=== PATIENT | male | born 1940 | race Caucasian/White ===

== ENCOUNTER → 2018-02-06 07:48 | Outpatient (REF) | payer MEDICARE, MEDICAID, SELFPAY ==
[2018-02-06 08:09] LABS: Add Manual Diff / Slide Review NO; Basophils Percent Auto 0.4 % (0-2); Eosinophils Percent Auto 11.6 % (2-4); Hematocrit 35.4 % (41-53); Hemoglobin 12.3 g/dL (13.5-17.5); Lymphocytes Percent Auto 28.9 % (25-40); Mean Corpuscular HGB Conc 34.6 % (30-36); Mean Corpuscular Hemoglobin 31.5 PG (26-34); Mean Corpuscular Volume 91.1 fL (80-100); Monocytes Percent Auto 8.9 % (3-14); Neutrophils Absolute Auto 2300 /uL (3000-5900); Neutrophils Percent Auto 50.2 % (50-75); Platelet Count 173 X10^3/uL (150-400); Red Blood Cell Count 3.88 X10^6/uL (4.5-5.9); Red Cell Distribution Width 14.9 % (11.6-14.8); White Blood Cell Count 4.6 X10^3/uL (4.5-11.0)
[2018-02-06 08:18] LABS: Alanine Aminotransferase 61 IU/L (21-72); Albumin 3.5 g/dL (3.5-5.0); Albumin Globulin Ratio 1.2 (1.0-2.8); Alkaline Phosphatase 81 U/L (38-126); Aspartate Aminotransferase 60 IU/L (17-59); BUN Creatinine Ratio 11.3 (6-22); Bilirubin Total 0.5 mg/dL (0.2-1.3); Blood Urea Nitrogen 9 mg/dL (9-20); Calcium 8.8 mg/dL (8.4-10.2); Carbon Dioxide 24 mmol/L (22-32); Chloride 102 mmol/L (98-107); Estimated Glomerular Filt Rate > 60.0 mL/min (>60); Globulin 2.9 g/dL (1.7-4.1); Glucose 85 mg/dL (80-110); HEMOLYSIS < 15 (0-50); Magnesium 1.8 mg/dL (1.6-2.3); Sodium 136 mmol/L (137-145); Total Protein 6.4 g/dL (6.3-8.2)
[2018-02-06 08:54] LABS: Thyroid Stimulating Hormone 1.27 uIU/mL (0.47-4.68)
[2018-02-06 09:06] LABS: Vitamin B12 635 pg/mL (239-931)
== END ==
LOC: LAB 07:48
PROVIDERS: Visit Provider Nurse Practitioner Family
DX: Z51.81 Encounter for therapeutic drug level monitoring (principal)
CPT/HCPCS: 36415; 80053; 82607; 83735; 84443; 85025

== ENCOUNTER 2018-03-25 09:49 | Emergency (ER) | payer MEDICARE, MEDICAID, SELFPAY ==
[2018-03-25] VITALS (8 sets, daily range): BP systolic 133–151; BP diastolic 68–77; PULSE 71–91; RESP 15–24; TEMP 37.4–38.3; O2SAT 96–98; BMI 24.2
--- NOTE | 2018-03-25 10:02 | DI.RAD.S_ITS ---
PROCEDURE: XR CHEST 1V INDICATIONS: fever TECHNIQUE: One view of the chest was acquired. COMPARISON: None. FINDINGS: Surgical changes and devices: None. Lungs and pleura: No pleural effusions or pneumothorax. Evaluation in the lung bases is limited due to lordotic projection. There are possible right basilar opacities. Mediastinum: Mediastinal contours appear normal. Heart size is normal. Bones and chest wall: No suspicious bony lesions. Overlying soft tissues appear unremarkable. IMPRESSION: 1. Limited evaluation of the lung bases secondary to lordotic projection with suspected opacities in the right base. Recommend a PA and lateral study when clinically feasible. Dictated by: Kirit Charles M.D. on 03/25/2018 at 10:31 Approved by: Kirit Charles M.D. on 03/25/2018 at 10:32
[2018-03-25] MEDS: SODIUM CHLORIDE 0.9% 1,000 ML 1000 ML IV ×2 (10:08→12:32)
--- NOTE | 2018-03-25 10:11 | ED_ITS ---
HPI - Fever General Chief Complaint: Fever Stated Complaint: Fever Time Seen by Provider: 03/25/18 09:56 Source: patient Mode of arrival: ambulatory Limitations: no limitations History of Present Illness HPI Narrative: Patient is brought to the emergency department for fever and not feeling well for the last couple of days. He states that he has not had any chest pain or abdominal pain; no shortness of breath. No nausea or vomiting. No dysuria. He does note that he has had back pain in his lower back, which is unusual for him. Patient denies sore throat. He states that he does have a number of sick contacts from his place of residence. No other complaints at this time. Patient is not sure of his T-max. Related Data Previous Rx's Medication Instructions Recorded sulfamethoxazole-trimethoprim 1 tab PO BID #14 tab 03/25/18 [Bactrim DS] Allergies Allergy/AdvReac Type Severity Reaction Status Date / Time No Known Drug Allergies Allergy Verified 03/25/18 10:07 Review of Systems Review of Systems All systems reviewed & are unremarkable except as noted in HPI and below Constitutional Denies chills, Reports fever(s), Denies lethargy, Reports malaise and Denies weakness Eyes Denies change in vision, Denies eye discharge, Denies irritation and Denies loss of vision ENT Ears, Nose, Mouth, and Throat: Denies change in voice, Denies neck pain and Denies sore throat Cardiovascular Denies chest pain, Denies irregular heart rhythm, Denies lightheadedness, Denies palpitations, Denies dyspnea, Denies dyspnea on exertion and Denies orthopnea Respiratory Denies cough, Denies dyspnea, Denies dyspnea on exertion and Denies wheezing Gastrointestinal Gastrointestinal: Denies abdominal pain, Denies change in bowel habits, Denies diarrhea, Denies nausea and Denies vomiting Genitourinary Denies hematuria, Denies flank pain, Denies urinary incontinence and Denies urinary urgency Musculoskeletal Denies neck pain Integumentary/Breasts Denies pruritus, Denies erythema, Denies rash and Denies wounds Neurologic Denies confusion, Denies loss of vision and Denies weakness Psychiatric Denies anxiety, Denies confusion, Denies depression, Denies homicidal ideation and Denies suicidal ideation Endocrine Denies palpitations Hematologic/Lymphatic Denies easy bruising Allergic/Immunologic Denies wheezing [facility] Medical History Hypothyroid (Acute) Depression (Acute) GERD (gastroesophageal reflux disease) (Acute) Surgical History No pertinent past surgical history (Acute) Social History additional social history: custodial resident, no smoking Exam Initial Vital Signs Initial Vital Signs: Vital Signs Temperature 100.9 F H 03/25/18 09:52 Pulse Rate 91 H 03/25/18 09:52 Respiratory Rate 15 03/25/18 09:52 Blood Pressure 133/76 03/25/18 09:52 Pulse Oximetry 96 03/25/18 09:52 Const General: cooperative and well developed Nutritional Appearance: well nourished Orientation: alert, awake, oriented x3 and not confused HENMT Head: normocephalic and atraumatic Ears: external ears normal Nose: external nose normal and No nasal discharge Face and sinus: face symmetric and No dry mucous membranes Mouth: oral mucosae normal and moist mucous membranes Teeth and gingiva: dentition normal Eyes General: appearance normal, both eyes and all related structures Eyelids: eyelids normal Conjunctivae: conjunctivae normal Sclera: sclerae normal Pupils: PERRL EOM: EOM intact bilaterally Neck Neck: normal visual inspection, trachea midline, No lymphadenopathy, No midline deformity and No JVD Lymphatic: No lymphedema Chest Chest: normal inspection of the chest Resp Effort & Inspection: normal respiratory effort, able to speak in complete sentences, no respiratory distress and no use of accessory muscles Auscultation: clear to auscultation bilaterally, no rales, no rhonchi and no wheezes Cardio Rate: regular rate Rhythm: regular rhythm Heart Sounds: no click, no gallops, no murmurs and no rubs Pulses: normal peripheral pulses GI Inspection: non-distended Palpation: soft, no hepatosplenomegaly, No guarding, No pulsatile mass and tender (Moderate, suprapubic) Auscultation: normal bowel sounds Back/Spine/Pelvis Back: CVA tenderness (Mild, bilateral CVA) Cervical Spine: cervical ROM normal and No pain with cervical ROM Thoracic/Lumbar Spine: thoracic and lumbar spine normal to inspection Skin General: no rashes or lesions noted, No jaundice and No petechiae Neuro General: alert, oriented x3, gait normal and no focal motor deficits Speech: speech normal Extrem General: full ROM, no clubbing, cyanosis or edema, no pedal edema and no calf tenderness Psych Appearance: well kempt Mental Status: mental status grossly normal Attitude: cooperative Thought Content: normal and suicidality Judgment: judgment good Course Course Narrative: Patient was given a L 0.9 normal saline, a dose of Tylenol, and worked up with labs, influenza test and urinalysis, as well as chest x-ray. Workup was negative except for the urinalysis, which showed a UTI. Patient was started on antibiotics for this. His lactic acid level was normal, and he remained hemodynamically stable throughout his stay in the emergency department. There is no indication of sepsis or any other serious, life- threatening condition. I did feel patient is stable for discharge back to his assisted living facility. We have discussed the usual indications for return. Orders Ordered: ED Orders 03/25/18 11:50 Urinalysis and Microscopic Stat Urine Culture Stat Discontinued Medications Sodium Chloride (Normal Saline 0.9%) 1,000 mls @ 1,000 mls/hr IV BOLUS ONE Stop: 03/25/18 11:01 Last Infusion: 03/25/18 12:31 Dose: 0 mls/hr Admin: 03/25/18 10:08 Dose: 1,000 mls/hr Sodium Chloride (Normal Saline 0.9%) 1,000 mls @ 1,000 mls/hr IV BOLUS ONE Stop: 03/25/18 13:30 Last Infusion: 03/25/18 13:53 Dose: 0 mls/hr Admin: 03/25/18 12:32 Dose: 1,000 mls/hr Trimethoprim/Sulfamethoxazole (Bactrim Ds) 1 tab PO NOW ONE Stop: 03/25/18 13:13 Last Admin: 03/25/18 13:17 Dose: 1 tab Vital Signs - 8 hr 03/25/18 12:34 03/25/18 13:00 03/25/18 13:30 Temperature Pulse Rate 72 78 71 Respiratory Rate 24 21 Blood Pressure Blood Pressure [Left Arm] 140/74 142/77 H 151/74 H Pulse Oximetry 97 03/25/18 13:53 03/25/18 14:15 Temperature 99.4 F 99.4 F Pulse Rate 73 Respiratory Rate 22 Blood Pressure 151/74 H Blood Pressure [Left Arm] Pulse Oximetry 96 MDM - Fever Medical Records Attestation: I reviewed the patient's medical records. Lab Data Attestation: I reviewed the patient's lab results. Result diagrams: 03/25/18 09:45 03/25/18 09:45 Lab Results 03/25/18 03/25/18 03/25/18 Range/Units 09:45 09:45 09:45 WBC 11.1 H (4.5-11.0) X10^3/uL RBC 4.59 (4.5-5.9) X10^6/uL Hgb 14.3 (13.5-17.5) g/dL Hct 41.9 (41-53) % MCV 91.4 (80-100) fL MCH 31.3 (26-34) PG MCHC 34.2 (30-36) % RDW 14.6 (11.6-14.8) % Plt Count 204 (150-400) X10^3/uL Neut % (Auto) 79.0 H (50-75) % Lymph % (Auto) 11.1 L (25-40) % [place] % (Auto) 8.2 (3-14) % Eos % (Auto) 0.4 L (2-4) % Baso % (Auto) 1.3 (0-2) % Neut # (Auto) 8700 H (3070-8848) /uL Sodium 136 L (137-145) mmol/L Potassium 3.9 (3.4-5.1) mmol/L Chloride 100 (98-107) mmol/L Carbon Dioxide 21 L (22-32) mmol/L BUN 12 (9-20) mg/dL Creatinine 1.00 (0.66-1.25) mg/dL Estimated GFR > 60.0 (>60) mL/min BUN/Creatinine Ratio 12.0 (6-22) Glucose 138 H (80-110) mg/dL Lactate 1.4 (0.7-2.1) mmol/L Calcium 9.7 (8.4-10.2) mg/dL Total Bilirubin 1.3 (0.2-1.3) mg/dL AST 40 (17-59) IU/L ALT 29 (21-72) IU/L Alkaline Phosphatase 90 (38-126) U/L Total Protein 8.1 (6.3-8.2) g/dL Albumin 4.4 (3.5-5.0) g/dL Globulin 3.7 (1.7-4.1) g/dL Albumin/Globulin Ratio 1.2 (1.0-2.8) Urine Color Urine Appearance Urine pH (4.5-8.0) Ur Specific [place] (1.000-1.035) Urine Protein (Negative) Urine Glucose (UA) (Negative) g/dL Urine Ketones (NEGATIVE) Urine Occult Blood (Negative) Urine Nitrate (Negative) Urine Bilirubin (NEGATIVE) Urine Urobilinogen (0.2) E.U./dL Ur Leukocyte Esterase (NEGATIVE) Urine RBC (0-5/HPF) Urine WBC (0-5/HPF) Urine Bacteria (None) Urine Mucus (Negative) Ur Culture Indicated? Influenza A & B (PCR) (Negative) 03/25/18 03/25/18 Range/Units 10:15 11:50 WBC (4.5-11.0) X10^3/uL RBC (4.5-5.9) X10^6/uL Hgb (13.5-17.5) g/dL Hct (41-53) % MCV (80-100) fL MCH (26-34) PG MCHC (30-36) % RDW (11.6-14.8) % Plt Count (150-400) X10^3/uL Neut % (Auto) (50-75) % Lymph % (Auto) (25-40) % [place] % (Auto) (3-14) % Eos % (Auto) (2-4) % Baso % (Auto) (0-2) % Neut # (Auto) (9900-7127) /uL Sodium (137-145) mmol/L Potassium (3.4-5.1) mmol/L Chloride (98-107) mmol/L Carbon Dioxide (22-32) mmol/L BUN (9-20) mg/dL Creatinine (0.66-1.25) mg/dL Estimated GFR (>60) mL/min BUN/Creatinine Ratio (6-22) Glucose (80-110) mg/dL Lactate (0.7-2.1) mmol/L Calcium (8.4-10.2) mg/dL Total Bilirubin (0.2-1.3) mg/dL AST (17-59) IU/L ALT (21-72) IU/L Alkaline Phosphatase (38-126) U/L Total Protein (6.3-8.2) g/dL Albumin (3.5-5.0) g/dL Globulin (1.7-4.1) g/dL Albumin/Globulin Ratio (1.0-2.8) Urine Color Yellow Urine Appearance Clear Urine pH 6.5 (4.5-8.0) Ur Specific [place] 1.015 (1.000-1.035) Urine Protein 1+ H (Negative) Urine Glucose (UA) Negative (Negative) g/dL Urine Ketones Negative (NEGATIVE) Urine Occult Blood 3+ H (Negative) Urine Nitrate Negative (Negative) Urine Bilirubin Negative (NEGATIVE) Urine Urobilinogen 0.2 (0.2) E.U./dL Ur Leukocyte Esterase 1+ H (NEGATIVE) Urine RBC 10-30/hpf H (0-5/HPF) Urine WBC 10-30/hpf H (0-5/HPF) Urine Bacteria Moderate (10-30) H (None) Urine Mucus 1+ H (Negative) Ur Culture Indicated? Specimen cultured Influenza A & B (PCR) Negative (Negative) Urine Dip Bedside Urine Glucose Negative Bedside Urine Bilirubin - Negative Bedside Urine Ketone - Negative Urine Specific [place] 1.015 Bedside Urine Occult Blood +++ Bedside Urine pH 6.0 Bedside Urine Protein + 30 Bedside Urine Urobilinogen - Negative Bedside Urine Nitrite - Negative Bedside Urine Leukocytes + 70 Esterase Imaging Data Chest x-ray: Attestation: I personally reviewed and interpreted this imaging study as follows: My impression: Negative Radiologist's impression: PROCEDURE: XR CHEST 1V INDICATIONS: fever TECHNIQUE: One view of the chest was acquired. COMPARISON: None. FINDINGS: Surgical changes and devices: None. Lungs and pleura: No pleural effusions or pneumothorax. Evaluation in the lung bases is limited due to lordotic projection. There are possible right basilar opacities. Mediastinum: Mediastinal contours appear normal. Heart size is normal. Bones and chest wall: No suspicious bony lesions. Overlying soft tissues appear unremarkable. IMPRESSION: 1. Limited evaluation of the lung bases secondary to lordotic projection with suspected opacities in the right base. Recommend a PA and lateral study when clinically feasible. Dictated by: Kirit Charles M.D. on 03/25/2018 at 10:31 Approved by: Kirit Charles M.D. on 03/25/2018 at 10:32 ECG Data Attestation: I personally reviewed and interpreted this ECG as follows: (See below) Interpretation: Twelve lead EKG performed March 25, 2017 at 10:20 a.m., as follows: Regular ventricular rhythm with a rate of 72 beats per minute LA interval 173 millisecond QRS duration 98 millisecond QTC interval [address] T wave changes No ectopy In summary, normal sinus rhythm; no STEMI; normal EKG as interpreted by ED MD. Discharge Plan Departure Patient Disposition: Home Clinical Impression: Acute UTI Discharge Date/Time: 03/25/18 14:15 Interventions: ED Discharge Assessment Last Done: 03/25/18 14:15 Instructions: DI for Urinary Tract Infection (UTI) Prescriptions: New sulfamethoxazole-trimethoprim [Bactrim DS] 800-160 mg tablet 1 tab PO BID Qty: 14 RF: 0 Referrals: [facility] [Provider Group]
[2018-03-25 10:12] LABS: Add Manual Diff / Slide Review NO; Basophils Percent Auto 1.3 % (0-2); Eosinophils Percent Auto 0.4 % (2-4); Hematocrit 41.9 % (41-53); Hemoglobin 14.3 g/dL (13.5-17.5); Lymphocytes Percent Auto 11.1 % (25-40); Mean Corpuscular HGB Conc 34.2 % (30-36); Mean Corpuscular Hemoglobin 31.3 PG (26-34); Mean Corpuscular Volume 91.4 fL (80-100); Monocytes Percent Auto 8.2 % (3-14); Neutrophils Absolute Auto 8700 /uL (1500-7000); Platelet Count 204 X10^3/uL (150-400); Red Blood Cell Count 4.59 X10^6/uL (4.5-5.9); Red Cell Distribution Width 14.6 % (11.6-14.8); White Blood Cell Count 11.1 X10^3/uL (4.5-11.0)
[2018-03-25 10:22] LABS: Alanine Aminotransferase 29 IU/L (21-72); Albumin 4.4 g/dL (3.5-5.0); Albumin Globulin Ratio 1.2 (1.0-2.8); Alkaline Phosphatase 90 U/L (38-126); Aspartate Aminotransferase 40 IU/L (17-59); Bilirubin Total 1.3 mg/dL (0.2-1.3); Blood Urea Nitrogen 12 mg/dL (9-20); Calcium 9.7 mg/dL (8.4-10.2); Carbon Dioxide 21 mmol/L (22-32); Chloride 100 mmol/L (98-107); Estimated Glomerular Filt Rate > 60.0 mL/min (>60); Globulin 3.7 g/dL (1.7-4.1); Glucose 138 mg/dL (80-110); HEMOLYSIS 18 (0-50); Potassium 3.9 mmol/L (3.4-5.1); Sodium 136 mmol/L (137-145); Total Protein 8.1 g/dL (6.3-8.2)
[2018-03-25 10:23] LABS: Lactate (Lactic Acid) 1.4 mmol/L (0.7-2.1)
[2018-03-25 10:35] LABS: Influenza A and B by PCR Rapid Negative (Negative)
[2018-03-25 12:08] LABS: Appearance Urine UA CLEAR; Bilirubin Urine UA NEGATIVE (NEGATIVE); Color Urine UA YELLOW; Glucose Urine UA NEGATIVE (Negative); Ketones Urine UA NEGATIVE (NEGATIVE); Leukocyte Esterase Urine UA 1+ (NEGATIVE); Nitrite Urine UA NEGATIVE (Negative); Occult Blood Urine UA 3+ (Negative); Protein Urine UA 1+ (Negative); Specific Gravity Urine UA 1.015 (1.000-1.035); Urobilinogen Urine UA 0.2 E.U./dL (0.2); pH Urine UA 6.5 (4.5-8.0)
[2018-03-25 12:21] LABS: Bacteria Urine Moderate (10-30); Culture Indicated Urine Specimen Cultured; Mucus Urine 1+ (Negative); RBC Urine 10-30/HPF (0-5/HPF); WBC Urine 10-30/HPF (0-5/HPF)
[2018-03-25] MEDS: TRIMETH/SULFA 160/800 (DS) TABLET 1 TAB PO (13:17)
[2018-03-26 09:32] LABS: Enterococcus species Not Detected (Not Detect); Listeria monocytogenes Not Detected (Not Detect)
[2018-03-26 09:33] LABS: Acinetobacter baumannii Not Detected (Not Detect); Candida albicans Not Detected (Not Detect); Candida glabrata Not Detected (Not Detect); Candida krusei Not Detected (Not Detect); Candida parapsilosis Not Detected (Not Detect); Candida tropicalis Not Detected (Not Detect); E. coli Not Detected (Not Detect); Enterobacter cloacae complex Not Detected (Not Detect); Enterobacteriaceae species Not Detected (Not Detect); Haemophilus influenzae Not Detected (Not Detect); Methicillin-resistant gene Not Detected (Not Detect); Neisseria meningitidis Not Detected (Not Detect); Proteus species Not Detected (Not Detect); Pseudomonas aeruginosa Not Detected (Not Detect); Serratia marcescens Not Detected (Not Detect); Staphylococcus species Detected (Not Detect); Streptococcus agalactiae (Gr B Not Detected (Not Detect); Streptococcus pneumonia Not Detected (Not Detect); Streptococcus pyogenes (Gr A) Not Detected (Not Detect); Streptococcus species Not Detected (Not Detect)
== END 2018-03-25 14:15 | disposition home or self-care (01) ==
PROVIDERS: Emergency Provider Emergency Medicine
DX: N39.0 Urinary tract infection, site not specified (principal)
CPT/HCPCS: 36415; 71045; 80053; 81001; 81003; 83605; 85025; 87040; 87077; 87086; 87150; 87186; 87205; 87400; 93005; 96360; 96361; 99284; 99285

== ENCOUNTER → 2018-06-16 10:41 | Outpatient (REF) | payer MEDICARE, MEDICAID, SELFPAY ==
[2018-06-16 11:04] LABS: Influenza A and B by PCR Rapid Negative (Negative)
== END ==
LOC: LAB 10:41
PROVIDERS: Visit Provider Internal Medicine
DX: J10.1 Influenza due to other identified influenza virus with other respiratory manifestations (principal)
CPT/HCPCS: 87400

== ENCOUNTER → 2018-09-08 15:38 | Outpatient (ROUT) | payer MEDICARE, MEDICAID, SELFPAY ==
[2018-09-08 15:53] LABS: Add Manual Diff / Slide Review NO; Basophils Absolute Auto 100 /uL (0-100); Basophils Percent Auto 1.6 % (0-2); Eosinophils Absolute Auto 400 /uL (0-450); Eosinophils Percent Auto 6.4 % (2-4); Hematocrit 38.9 % (41-53); Hemoglobin 13.3 g/dL (13.5-17.5); Lymphocytes Absolute Auto 1600 /uL (1100-4500); Lymphocytes Percent Auto 23.7 % (25-40); Mean Corpuscular HGB Conc 34.3 % (30-36); Mean Corpuscular Volume 93.3 fL (80-100); Monocytes Absolute Auto 600 /uL (0-900); Monocytes Percent Auto 8.2 % (3-14); Neutrophils Absolute Auto 4000 /uL (1500-7000); Neutrophils Percent Auto 60.1 % (50-75); Platelet Count 257 X10^3/uL (150-400); Red Blood Cell Count 4.17 X10^6/uL (4.5-5.9); Red Cell Distribution Width 14.8 % (11.6-14.8); White Blood Cell Count 6.7 X10^3/uL (4.5-11.0)
[2018-09-08 15:56] LABS: Alanine Aminotransferase 19 IU/L (21-72); Albumin Globulin Ratio 1.3 (1.0-2.8); Alkaline Phosphatase 101 U/L (38-126); Aspartate Aminotransferase 31 IU/L (17-59); Bilirubin Total 0.8 mg/dL (0.2-1.3); Blood Urea Nitrogen 14 mg/dL (9-20); Calcium 9.7 mg/dL (8.4-10.2); Carbon Dioxide 22 mmol/L (22-32); Chloride 105 mmol/L (98-107); Estimated Glomerular Filt Rate > 60.0 mL/min (>60); Globulin 3.2 g/dL (1.7-4.1); Glucose 145 mg/dL (80-110); HEMOLYSIS < 15 (0-50); Potassium 4.3 mmol/L (3.4-5.1); Sodium 137 mmol/L (137-145); Total Protein 7.2 g/dL (6.3-8.2)
[2018-09-08 21:12] LABS: Amylase 58 U/L (30-110)
== END ==
PROVIDERS: Visit Provider Internal Medicine
DX: R11.0 Nausea (principal); R10.9 Unspecified abdominal pain
CPT/HCPCS: 80053; 82150; 85025

== ENCOUNTER → 2018-09-11 18:43 | Outpatient (ROUT) | payer MEDICARE, MEDICAID, SELFPAY ==
[2018-09-11 18:54] LABS: Add Manual Diff / Slide Review NO; Basophils Absolute Auto 100 /uL (0-100); Basophils Percent Auto 0.7 % (0-2); Eosinophils Absolute Auto 500 /uL (0-450); Eosinophils Percent Auto 6.1 % (2-4); Hematocrit 35.8 % (41-53); Hemoglobin 12.2 g/dL (13.5-17.5); Lymphocytes Absolute Auto 2100 /uL (1100-4500); Lymphocytes Percent Auto 24.4 % (25-40); Mean Corpuscular Hemoglobin 31.9 PG (26-34); Mean Corpuscular Volume 93.8 fL (80-100); Monocytes Absolute Auto 800 /uL (0-900); Monocytes Percent Auto 8.9 % (3-14); Neutrophils Absolute Auto 5100 /uL (1500-7000); Neutrophils Percent Auto 59.9 % (50-75); Platelet Count 218 X10^3/uL (150-400); Red Blood Cell Count 3.82 X10^6/uL (4.5-5.9); Red Cell Distribution Width 14.7 % (11.6-14.8); White Blood Cell Count 8.5 X10^3/uL (4.5-11.0)
[2018-09-11 19:18] LABS: Blood Urea Nitrogen 16 mg/dL (9-20); Calcium 9.3 mg/dL (8.4-10.2); Carbon Dioxide 19 mmol/L (22-32); Chloride 107 mmol/L (98-107); Estimated Glomerular Filt Rate > 60.0 mL/min (>60); Glucose 85 mg/dL (80-110); HEMOLYSIS < 15 (0-50); Potassium 4.5 mmol/L (3.4-5.1); Sodium 136 mmol/L (137-145)
== END ==
PROVIDERS: Visit Provider Internal Medicine
DX: R56.9 Unspecified convulsions (principal)
CPT/HCPCS: 80048; 85025

== ENCOUNTER → 2018-10-16 07:55 | Outpatient (ROUT) | payer MEDICARE, MEDICAID, SELFPAY ==
[2018-10-16 09:38] LABS: Thyroid Stimulating Hormone 2.43 uIU/mL (0.47-4.68)
== END ==
PROVIDERS: Visit Provider Internal Medicine
DX: E03.9 Hypothyroidism, unspecified (principal)
CPT/HCPCS: 36415; 84443

== ENCOUNTER → 2019-01-15 08:02 | Outpatient (ROUT) | payer MEDICARE, MEDICAID, SELFPAY ==
[2019-01-15 09:08] LABS: Add Manual Diff / Slide Review NO; Basophils Absolute Auto 0 /uL (0-100); Basophils Percent Auto 0.4 % (0-2); Eosinophils Absolute Auto 500 /uL (0-450); Eosinophils Percent Auto 9.9 % (2-4); Hematocrit 34.7 % (41-53); Lymphocytes Absolute Auto 1100 /uL (1100-4500); Lymphocytes Percent Auto 23.9 % (25-40); Mean Corpuscular HGB Conc 34.5 % (30-36); Mean Corpuscular Hemoglobin 31.9 PG (26-34); Mean Corpuscular Volume 92.4 fL (80-100); Monocytes Absolute Auto 300 /uL (0-900); Monocytes Percent Auto 6.8 % (3-14); Neutrophils Absolute Auto 2800 /uL (1500-7000); Platelet Count 246 X10^3/uL (150-400); Red Blood Cell Count 3.76 X10^6/uL (4.5-5.9); Red Cell Distribution Width 14.5 % (11.6-14.8); White Blood Cell Count 4.7 X10^3/uL (4.5-11.0)
[2019-01-15 09:33] LABS: Alanine Aminotransferase 25 IU/L (21-72); Albumin 3.8 g/dL (3.5-5.0); Albumin Globulin Ratio 1.2 (1.0-2.8); Alkaline Phosphatase 104 U/L (38-126); Aspartate Aminotransferase 35 IU/L (17-59); BUN Creatinine Ratio 11.5 (6-22); Bilirubin Total 0.6 mg/dL (0.2-1.3); Blood Urea Nitrogen 15 mg/dL (9-20); Calcium 9.6 mg/dL (8.4-10.2); Carbon Dioxide 25 mmol/L (22-32); Chloride 105 mmol/L (98-107); Creatine Kinase 33 U/L (55-170); Estimated Glomerular Filt Rate 53.1 mL/min (>60); Globulin 3.2 g/dL (1.7-4.1); Glucose 85 mg/dL (80-110); HEMOLYSIS < 15 (0-50); Potassium 4.8 mmol/L (3.4-5.1); Sodium 138 mmol/L (137-145)
[2019-01-15 09:57] LABS: Thyroid Stimulating Hormone 1.15 uIU/mL (0.47-4.68)
[2019-01-15 10:15] LABS: Vitamin B12 582 pg/mL (239-931)
== END ==
PROVIDERS: Visit Provider Internal Medicine
DX: E03.9 Hypothyroidism, unspecified (principal); I10 Essential (primary) hypertension; D50.9 Iron deficiency anemia, unspecified; Z79.899 Other long term (current) drug therapy
CPT/HCPCS: 36415; 80053; 82550; 82607; 84443; 85025

== ENCOUNTER → 2019-01-24 08:19 | Outpatient (ROUT) | payer MEDICARE, MEDICAID, SELFPAY ==
[2019-01-24 09:18] LABS: BUN Creatinine Ratio 11.7 (6-22); Blood Urea Nitrogen 14 mg/dL (9-20); Calcium 9.7 mg/dL (8.4-10.2); Carbon Dioxide 26 mmol/L (22-32); Chloride 102 mmol/L (98-107); Estimated Glomerular Filt Rate 58.3 mL/min (>60); Glucose 84 mg/dL (80-110); HEMOLYSIS < 15 (0-50); Potassium 4.5 mmol/L (3.4-5.1); Sodium 137 mmol/L (137-145)
== END ==
PROVIDERS: Visit Provider Internal Medicine
DX: N17.9 Acute kidney failure, unspecified (principal)
CPT/HCPCS: 36415; 80048

== ENCOUNTER → 2019-02-12 08:15 | Outpatient (ROUT) | payer MEDICARE, MEDICAID, SELFPAY ==
[2019-02-17 17:19] LABS: Vitamin B1 169 nmol/L (78-185)
== END ==
PROVIDERS: Visit Provider Internal Medicine
DX: M62.81 Muscle weakness (generalized) (principal)
CPT/HCPCS: 36415; 83735; 84425

== ENCOUNTER → 2019-07-23 07:41 | Outpatient (ROUT) | payer MEDICARE, MEDICAID, SELFPAY ==
[2019-07-23 07:53] LABS: Add Manual Diff / Slide Review NO; Basophils Absolute Auto 100 /uL (0-100); Basophils Percent Auto 1.1 % (0-2); Eosinophils Absolute Auto 400 /uL (0-450); Eosinophils Percent Auto 7.8 % (2-4); Hematocrit 38.2 % (41-53); Hemoglobin 13.4 g/dL (13.5-17.5); Lymphocytes Absolute Auto 1500 /uL (1100-4500); Lymphocytes Percent Auto 29.2 % (25-40); Mean Corpuscular Hemoglobin 33.1 PG (26-34); Mean Corpuscular Volume 94.6 fL (80-100); Monocytes Absolute Auto 400 /uL (0-900); Monocytes Percent Auto 7.3 % (3-14); Neutrophils Absolute Auto 2700 /uL (1500-7000); Neutrophils Percent Auto 54.6 % (50-75); Platelet Count 197 X10^3/uL (150-400); Red Blood Cell Count 4.04 X10^6/uL (4.5-5.9); Red Cell Distribution Width 14.5 % (11.6-14.8)
[2019-07-23 08:05] LABS: BUN Creatinine Ratio 15.4 (6-22); Blood Urea Nitrogen 20 mg/dL (9-20); Calcium 9.5 mg/dL (8.4-10.2); Carbon Dioxide 24 mmol/L (22-32); Chloride 104 mmol/L (98-107); Glucose 97 mg/dL (80-110); HEMOLYSIS < 15 (0-50); Potassium 4.5 mmol/L (3.4-5.1); Sodium 135 mmol/L (137-145)
[2019-07-23 08:35] LABS: Thyroid Stimulating Hormone 1.57 uIU/mL (0.47-4.68)
== END ==
PROVIDERS: Visit Provider Internal Medicine
DX: E03.9 Hypothyroidism, unspecified (principal)
CPT/HCPCS: 36415; 80048; 84443; 85025